=== PATIENT | female | born 1995 | race African-American/Black ===

== ENCOUNTER 2020-06-19 20:04 | Emergency (ER) | payer OTHER ==
[~2020-06-19] VITALS: Ht 170.2 cm; Wt 68.0 kg
--- NOTE | 2020-06-19 20:10 | NUR ---
BIBS FROM HOME TO ER BED 7. AAOX4. NOT IN RESP DISTRESS. AMBULATORY. 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 PT ALSO IS COMPLAINING OF A BLUURED VISION WHICH IS CHRONIC AND STARTED TO SEE SPOTS X 1 MONTH. PT HAVE GONE TO THE OPTOMITRIST. PT ON MONITOR. MD AWAITING MD FOR EVAL. EKG DONE.
--- NOTE | 2020-06-19 20:17 | NUR ---
EKG ORDER PER CHEST PAIN PROTOCOL
--- NOTE | 2020-06-19 22:52 | NUR ---
Patient discharged to home in stable condition. Written and verbal after care instructions given. Patient verbalizes understanding of instruction. Pt ambulatory with a steady gait
[2020-06-19 22:55] VITALS: BP 122/73
== END 2020-06-19 22:55 | disposition home or self-care (01) ==
LOC: ER 20:18
DX: F41.9 Anxiety disorder, unspecified (principal); R51.9 Headache, unspecified; H53.8 Other visual disturbances; R07.89 Other chest pain
CPT/HCPCS: 71045-TC

== ENCOUNTER 2025-01-31 18:43 | Emergency (ER) | payer MEDICAID, OTHER ==
[~2025-01-31] VITALS: Ht 170.2 cm; Wt 70.3 kg
[2025-01-31] MEDS ORDERED: IV NS 0.9% 250 ML IV ONE (19:43)
[2025-01-31] MEDS ORDERED: IOHEXOL-350 100 ML VIAL IV ONE (19:43)
[2025-01-31] MEDS ORDERED: CT SWABBABLE VALVE TRANS SET 1 EA INFUS.SET MC ONE (19:43)
[2025-01-31 19:57] LABS: PLATELET COUNT (AUTO) 297 K/uL (150-450); RED BLOOD CELL COUNT(AUTO) 4.25 MIL/uL (4.0-5.2); RED CELL DISTRIBUTION WIDTH 15.4 % (11.5-15.0); WHITE BLOOD COUNT (AUTO) 7.0 K/uL (4.3-11.0)
[2025-01-31 20:08] LABS: CALCIUM, SERUM 8.1 mg/dL (8.5-10.1); CREATININE 0.7 mg/dL (0.6-1.3); SODIUM SERUM 142 mmol/L (136-145); UREA NITROGEN, BLOOD 9 mg/dL (7-18)
[2025-01-31 20:11] LABS: INR 1.04 (0.91-1.10)
[2025-01-31 20:14] LABS: ASPARTATE AMINOTRANSFERASE 19 U/L (15-37); TOTAL PROTEIN, SERUM 7.1 g/dL (6.4-8.2)
[2025-01-31] MEDS ORDERED: METOCLOPRAMIDE HCL 10 MG/2 ML VIAL ONE (20:25)
[2025-01-31] MEDS ORDERED: DEXTROSE 50%-WATER 50 ML DISP.SYRIN ONE (20:25)
[2025-01-31] MEDS ORDERED: ACETAMINOPHEN 325 MG TABLET ONE (20:26)
[2025-01-31] MEDS: IV NS 0.9% 1,000 ML BAG IV ONE (20:33)
[2025-01-31] MEDS: METOCLOPRAMIDE HCL 10 MG/2 ML VIAL IV ONE (20:34)
[2025-01-31] MEDS: DEXTROSE 50%-WATER 50 ML DISP.SYRIN IVP ONE (20:34)
[2025-01-31] MEDS: ACETAMINOPHEN 325 MG TABLET PO ONE (20:34)
[2025-01-31] MEDS ORDERED: KETOROLAC TROMETHAMINE 15 MG/ML VIAL ONE (22:31)
[2025-01-31] MEDS ORDERED: Magnesium 1GM/D5W 100ML PREMIX 100 ML IV ONE (22:32)
[2025-01-31] MEDS: KETOROLAC TROMETHAMINE 15 MG/ML VIAL IV ONE (22:54)
[2025-01-31] MEDS: Magnesium 1GM/D5W 100ML PREMIX 100 ML IV ONE (22:54)
[2025-01-31] MEDS ORDERED: PROCHLORPERAZINE EDISYLATE 10 MG/2 ML VIAL ONE (23:30)
[2025-01-31] MEDS ORDERED: dexaMETHasone SOD PHOSPHATE 1 ML ONE (23:30)
[2025-01-31] MEDS: dexaMETHasone SOD PHOSPHATE 10 MG/ML VIAL IV ONE (23:36)
[2025-01-31] MEDS: PROCHLORPERAZINE EDISYLATE 10 MG/2 ML VIAL IVP ONE (23:36)
[2025-02-01] MEDS ORDERED: KETO10TA2 PO (00:07)
[2025-02-01] MEDS ORDERED: SUMA100T PO (00:07)
[2025-02-01] MEDS ORDERED: PROC10TA29 PO (00:07)
[2025-02-01 00:42] VITALS: BP 124/79; TEMP 98.3; O2SAT 99
== END 2025-02-01 00:43 | disposition home or self-care (01) ==
LOC: ER 19:11
DX: R51.9 Headache, unspecified (principal); R20.0 Anesthesia of skin; R07.89 Other chest pain; R10.20 Pelvic and perineal pain unspecified side
CPT/HCPCS: 99285; 70498; 96375; 96365; 93005; 70496; 85025; 80048; 80076; 36415; 84484; 85730; 84702; 70450; J1885; J0780; J1100; J1200; J2765; J7030; J7050; J3475; Q9967

== ENCOUNTER 2025-02-22 12:28 | Emergency (ER) | payer MEDICAID ==
[~2025-02-22] VITALS: Ht 170.2 cm; Wt 70.3 kg
[~2025-02-22 12:28] MED LIST: KETO10TA2 PO; PROC10TA29 PO; SUMA100T PO
[2025-02-22 12:39] VITALS: TEMP 98.1
[2025-02-22] MEDS: IV NS 0.9% 1,000 ML BAG IV ONE (13:15)
[2025-02-22] MEDS: ACETAMINOPHEN ES 500 MG TABLET PO ONE (13:16)
[2025-02-22] MEDS: dexaMETHasone SOD PHOSPHATE 10 MG/ML VIAL IV ONE (13:17)
[2025-02-22] MEDS: METOCLOPRAMIDE HCL 10 MG/2 ML VIAL IV ONE (13:20)
[2025-02-22 13:23] LABS: APPEARANCE,URINE CLEAR (CLEAR); BLOOD, URINE NEGATIVE Ery/uL (NEGATIVE); LEUKOCYTE ESTERASE ,URINE 2+ (NEGATIVE); NITRITE, URINE NEGATIVE (NEGATIVE); UGLUCOSE NEGATIVE (NEGATIVE)
[2025-02-22 13:25] LABS: PREGNANCY TEST URINE QUAL NEGATIVE (NEGATIVE)
[2025-02-22 13:28] LABS: CALCIUM, SERUM 8.9 mg/dL (8.5-10.1); CREATININE 0.7 mg/dL (0.6-1.3); SODIUM SERUM 137.0 mmol/L (136-145); UREA NITROGEN, BLOOD 8.0 mg/dL (7-18)
[2025-02-22 13:30] LABS: PLATELET COUNT (AUTO) 306 K/uL (150-450); RED BLOOD CELL COUNT(AUTO) 4.85 MIL/uL (4.0-5.2); RED CELL DISTRIBUTION WIDTH 15.8 % (11.5-15.0); WHITE BLOOD COUNT (AUTO) 7.3 K/uL (4.3-11.0)
[2025-02-22 13:34] LABS: ASPARTATE AMINOTRANSFERASE 19.0 U/L (15-37); TOTAL PROTEIN, SERUM 8.2 g/dL (6.4-8.2)
[2025-02-22 13:36] LABS: ADD URINE CULTURE YES
[2025-02-22] MEDS ORDERED: CEPH-570 PO (14:02)
[2025-02-22] MEDS ORDERED: dexaMETHasone SOD PHOSPHATE 1 ML ONE (14:07)
[2025-02-22] MEDS ORDERED: METOCLOPRAMIDE HCL 10 MG/2 ML VIAL ONE (14:07)
[2025-02-22] MEDS ORDERED: ACETAMINOPHEN ES 500 MG TABLET ONE (14:07)
[2025-02-22 18:20] VITALS: BP 113/75; O2SAT 98
== END 2025-02-22 18:06 | disposition home or self-care (01) ==
LOC: ER 12:42
DX: R20.2 Paresthesia of skin (principal); N39.0 Urinary tract infection, site not specified; G43.909 Migraine, unspecified, not intractable, without status migrainosus; I63.9 Cerebral infarction, unspecified; Z79.52 Long term (current) use of systemic steroids
CPT/HCPCS: 99285; 70551; 96374; 96375; 96361; 93005; 85025; 80048; 87086; 80076; 84703; 81001; 36415; J1100; J1200; J2765; J7030